=== PATIENT | male | born 1940 | race Caucasian/White ===

== ENCOUNTER → 2017-12-30 | Outpatient (CLI) | payer MEDICARE, OTHER ==
--- NOTE | 2017-12-30 12:43 | RADIOLOGY REPORT (SQ) ---
EXAM DESCRIPTION: U/S RETROPERITON LTD COMPLETED DATE/TIME: 12/30/2017 11:47 am REASON FOR STUDY: PROTEINURIA, UNSPECIFIED R80.9 PROTEINURIA, UNSPECIFIED COMPARISON: None. TECHNIQUE: Dynamic and static grayscale images acquired of the kidneys and bladder and recorded on P ACS. Additional selected color Doppler and spectral images recorded. LIMITATIONS: None. FINDINGS: RIGHT KIDNEY: 12.7 cm in length. Normal echogenicity. No solid or suspicious masses. No hydronephrosis. No calcifications. LEFT KIDNEY: 12.5 cm in length. Normal echogenicity. No solid or suspicious masses. No hydrone phrosis. No calcifications. BLADDER: The bladder was not well evaluated due to its non distended state. OTHER FINDINGS: No other significant finding. IMPRESSION: No significant renal abnormalities were identified. The bladder was not well evaluated due to its non distended state. TECHNICAL DOCUMENTATION: JOB ID: [id number] [employer]- All Rights Reserved Reading location - IP/workstation name: [email or web address]
== END ==
LOC: RAD 11:26
PROVIDERS: ATTEND Urology
DX: R80.9 Proteinuria, unspecified (principal)
CPT/HCPCS: 76775

== ENCOUNTER → 2018-01-17 | Outpatient (CLI) | payer MEDICARE, OTHER ==
--- NOTE | 2018-01-17 11:03 | RADIOLOGY REPORT (SQ) ---
EXAM DESCRIPTION: CT ABD/PELVIS WITH IV ONLY COMPLETED DATE/TIME: 01/17/2018 9:39 am REASON FOR STUDY: PROSTATE CA (C61) C61 MALIGNANT NEOPLASM OF PROSTATE COMPARISON: None. TECHNIQUE: CT scan of the abdomen and pelvis performed using helical scanning technique with dynamic intravenous contrast injection. No oral contrast. Images reviewed with lung, soft tissue, and bone windows. Reconstructed coronal and sagittal MPR images reviewed. Delayed images for evaluation of the urinary system also acquired. All images stored on PACS. All CT scanners at this facility use dose modulation, iterative reconstruction, and/or weight based d osing when appropriate to reduce radiation dose to as low as reasonably achievable (ALARA). [facility]: Dose Right [facility]: CareDose [facility]: Dose Right [facility]: Teradose 4D [facility]: Nintex CONTRAST TYPE AND DOSE: contrast/concentration: Isovue 370.00 mg/ml; Total Contrast Delivered: 97.0 ml; Total Saline Delivered: 72.0 ml RENAL FUNCTION: Creatinine 0.9 RADIATION DOSE: CT Rad equipment meets quality standard of care and radiation dose reduction techniq ues were employed. CTDIvol: 10.8 - 12.3 mGy. DLP: 1244 mGy-cm.. LIMITATIONS: None. FINDINGS: LOWER CHEST: At the T9 level, a lytic destructive bony lesion is present in the right pedi jose guadalupe, with epidural tumor bulging into the spinal canal causing at least 50% canal narrowing. This is best shown on axial images 1-4. Thoracic and lumbar spine MRI without with contrast is recommended to evaluate for other sites of significant epidural tumor. This report was called deven Rivera at [facility], 1030 hours 01/17/2018. This finding is best shown on coronal reconstruction image 92, and axial images 2 through 4. Lung bases are free of focal infiltrates. No pleural effusion. LIVER: Normal size. No masses. No dilated ducts. SPLEEN: Normal size. No focal lesions. PANCREAS: No masses. No significant calcifications. No adjacent inflammation or peripancreatic fluid collections. Pancreatic duct not dilated. GALLBLADDER: Tiny stones in the gallbladder without gallbladder wall thickening or pericholecystic fl uid. ADRENAL GLANDS: No significant masses or asymmetry. RIGHT KIDNEY AND URETER: No solid masses. No significant calcifications. No hydronephrosis or hyd roureter. LEFT KIDNEY AND URETER: No solid masses. 3 cm cyst left upper pole kidney. No significant calcifica tions. No hydronephrosis or hydroureter. AORTA AND VESSELS: No aneurysm. No dissection. Renal arteries, SMA, celiac without stenosis. RETROPERITONEUM: Small retroperitoneal lymph nodes are present along the aortocaval and para-aortic r egions and right external iliac region as follows: Right common iliac lymph node 1.6 x 1.1 cm image 53 Left para-aortic lymph node 2 x 1.5 cm axial image 49 Right external iliac lymph node 1.6 x 1.3 cm image 69 BOWEL AND PERITONEAL CAVITY: No masses or inflammatory changes. No free fluid or peritoneal masses. APPENDIX: Normal. PELVIS: Prostate is 7 x 7 x 9 cm in size. No free pelvic fluid. ABDOMINAL WALL: No masses. No hernias. BONES: Significant epidural tumor in the rightward spinal canal at the T9 level. Diffuse bony metast atic disease is seen throughout the remainder of the visualized spine pelvis and ribs. OTHER: No other significant finding. 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
--- NOTE | 2018-01-17 12:51 | RADIOLOGY REPORT (SQ) ---
EXAM DESCRIPTION: NM WHOLE BODY BONE SCAN COMPLETED DATE/TIME: 01/17/2018 12:23 pm REASON FOR STUDY: PROSTATE CA (C61) C61 MALIGNANT NEOPLASM OF PROSTATE COMPARISON: CT abdomen pelvis 01/17/2018 RADIONUCLIDE AND DOSE: 21.6 millicuries Tc99m MDP. The route of agent administration: Intravenous. ADDITIONAL DRUGS AND DOSES: None. TECHNIQUE: Routine delayed images at 3 hours post radionuclide injection acquired of the bony skelet on including anterior and posterior whole-body projections and additional focused images as needed. LIMITATIONS: None. FINDINGS: Increased uptake is seen throughout the calvarium, thoracic and lumbar spine, bony pelvis, and ribs. Increased uptake is seen in the left bony glenoid, left humeral head, left midshaft diaphysis. Tiny subcentimeter low lesions are seen in the bilateral femurs and bilateral proximal tibias. IMPRESSION: Widespread bony metastatic disease. COMMENT: Quality measure 147: Current bone scan is compared with any available plain radiographs, p rior bone scans, and CT/MRI. TECHNICAL DOCUMENTATION: JOB ID: [id number] [employer]- All Rights Reserved Reading location - IP/workstation name: [email or web address]
== END ==
LOC: RAD 08:46
PROVIDERS: ATTEND Urology
DX: C61 Malignant neoplasm of prostate (principal)
CPT/HCPCS: 82565; 78306; 74177; A9561; Q9969

== ENCOUNTER → 2018-03-31 | Outpatient (CLI) | payer MEDICARE, OTHER ==
--- NOTE | 2018-03-31 16:07 | RADIOLOGY REPORT (SQ) ---
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 MR of the T-spine an MR L-spine 01/19/2018 RADIONUCLIDE AND DOSE: 20 millicuries Tc99m HDP. The route of agent administration: Intravenous. ADDITIONAL DRUGS AND DOSES: None. TECHNIQUE: Routine delayed images at 3 hours post radionuclide injection acquired of the bony skelet on including anterior and posterior whole-body projections and additional focused images as needed. LIMITATIONS: None. FINDINGS: BONES: There is increased uptake extensively in the skeleton. Lesions are seen in the lef t shoulder, sternum, calvarium, multiple ribs, throughout the spine, and pelvis, femurs and tibias. No definite new areas of activity is seen. KIDNEYS: Symmetric excretion without obstruction. OTHER: No other significant finding. IMPRESSION: Extensive metastatic disease to bone. COMMENT: Quality measure 147: Current bone scan is compared with any available plain radiographs, p rior bone scans, and CT/MRI. TECHNICAL DOCUMENTATION: JOB ID: [id number] [employer]- All Rights Reserved Reading location - IP/workstation name: [email or web address]
== END ==
LOC: RAD 10:38
PROVIDERS: ATTEND Radiology Radiation Oncology
DX: C61 Malignant neoplasm of prostate (principal); C79.51 Secondary malignant neoplasm of bone; R97.20 Elevated prostate specific antigen [PSA]
CPT/HCPCS: 78306; A9561; Q9969